=== PATIENT | male | born 2000 | race Caucasian/White ===

== ENCOUNTER 2022-06-15 14:26 | Emergency (ER) | payer OTHER, SELFPAY ==
--- NOTE | 2022-06-15 14:30 | ED.URI ---
HPI - URI/Sore Throat General Chief Complaint: Upper Respiratory Infection Stated Complaint: headache, congestion, sore throat,cough Time Seen by Provider: 06/15/22 14:31 Source: patient and RN notes reviewed History of Present Illness HPI Narrative: Patient is a 21-year-old male who presents to the Urgent Care with complaints of headache, congestion, sore throat, cough. Patient states that it started last Wednesday and he has been using Sudafed intermittently and Tylenol and ibuprofen. Denies any ill contacts. Denies any fevers, nausea or vomiting. No other acute complaints. No acute distress noted. Patient aware of the plan of care. Some parts of this dictation were generated by voice recognition software and may contain typographical and/or grammatical inaccuracies. Related Data Home Medications Medication Instructions Recorded Confirmed bupropion HCl 150 mg tablet,12 hr 150 mg PO DAILY 06/15/22 06/15/22 sustained-release Allergies Allergy/AdvReac Type Severity Reaction Status Date / Time No Known Allergies Allergy Verified 06/15/22 14:37 Review of Systems Review of Systems: CONSTITUTIONAL: Denies fever, chills, or sweats. EYES: Denies visual changes, redness, or discharge. ENT: Reports of congestion, sore throat CARDIOVASCULAR: Denies chest pain, palpitations, or edema. RESPIRATORY: Reports cough without dyspnea GASTROINTESTINAL: Denies abdominal pain, nausea, vomiting, or diarrhea. GENITOURINARY: Denies dysuria or hematuria. SKIN: Denies rash or itching. MUSCULOSKELETAL: Denies back pain, joint pain, or myalgia. NEUROLOGIC: Reports of headache All other systems reviewed are negative, except as documented in HPI. PMFSH Comments At the time of my signature, I reviewed and agree with the nursing past medical, surgical, social, and family history. There is no relevant family history pertinent to the patient complaint. Exam Narrative: GENERAL: This is a well-nourished, well-developed patient, in no apparent distress. HEAD: normocephalic, atraumatic. EYES: PERRL. Sclera clear/white. Vision is grossly intact. EARS: External ears normal, auditory canals clear and without drainage, bilateral eustachian tube dysfunction. TMs normal without perforation. Hearing grossly intact. NOSE: External nose normal with no obvious nasal discharge, nares without redness, clear yellow rhinorrhea. THROAT: Mucous membranes moist, posterior pharynx clear. Moderate postnasal drainage NECK: Neck supple, non-tender without lymphadenopathy CARDIOVASCULAR: Regular rate and rhythm without murmurs, gallops, or rubs. RESPIRATORY: Clear to auscultation. Breath sounds equal bilaterally. No wheezes, rales, or rhonchi. SKIN: warm, intact with no suspicious lesions or rash, good texture and turgor. NEURO: awake, alert, and oriented to person, place and time. There were no obvious focal neurologic abnormalities. EXTREMITIES: No clubbing, cyanosis, or edema. Course Course Level of Care: Express Care Visit Vital Signs Vital signs: Vital Signs Temperature 98.8 F 06/15/22 14:37 Pulse Rate 88 06/15/22 14:37 Respiratory Rate 20 06/15/22 14:37 Blood Pressure 139/61 06/15/22 14:37 Pulse Oximetry 97 06/15/22 14:37 Temperature 98.8 F 06/15/22 14:38 Pulse Rate 88 06/15/22 14:38 Respiratory Rate 20 06/15/22 14:38 Blood Pressure 139/61 06/15/22 14:38 Pulse Oximetry 97 06/15/22 14:38 Reviewed MDM - URI/Sore Throat MDM Narrative Medical decision making narrative: Advised patient to complete the steroid regimen as prescribed. Use the Flonase as needed for postnasal drainage. Use the Tessalon as needed for nonproductive cough. Would recommend a daily antihistamine such as Claritin or Zyrtec and use 25 mg capsule of Benadryl prior to bedtime. Use a humidifier at night. Use Tylenol/ibuprofen/Excedrin migraine as needed for headaches. Increase water intake and rest. Follow-up with your PCP within 2-5 day
[2022-06-15 14:37] VITALS: BP 139/61; PULSE 88; RESP 20; TEMP 37.1; O2SAT 97
[2022-06-15 14:38] VITALS: BP 139/61; PULSE 88; RESP 20; TEMP 37.1; O2SAT 97
== END 2022-06-15 14:59 | disposition home or self-care (01) ==
PROVIDERS: Emergency Provider Nurse Practitioner Family
DX: J32.9 Chronic sinusitis, unspecified (principal)
CPT/HCPCS: 99203; G0463

== ENCOUNTER 2023-11-27 18:44 | Emergency (ER) | payer OTHER, SELFPAY | END 2023-11-27 19:31 | disposition home or self-care (01) | LOC: EXPGOSH 19:30 | PROVIDERS: Emergency Provider Nurse Practitioner | DX: L02.415 Cutaneous abscess of right lower limb (principal) | CPT/HCPCS: 99213; G0463 ==

== ENCOUNTER 2025-02-15 09:05 | Outpatient (CLI) | payer OTHER, SELFPAY ==
--- OUTSIDE RECORDS SUMMARY | 2025-02-15 09:12 | XMS_ITS | Data Portability ---
Author Organization [place] [facility], Main Office Address [address] [place] [id number] Care Team Providers Care Nursing Education Consultant Name Role Phone NELI DYER Primary Care Provider [phone] Assessment Encounter Date Assessment Date Assessment LastModified by Organization Details LastModified Time 02/06/2025 02/06/2025 Time spent with patient included: preparing to see patient by reviewing tests, obtaining and reviewing history, medical examination and evaluation, counseling and educating the patient, ordering medications and tests, documenting clinical information in EHR, independently interpreting results and communicating results to the patient for a total of 38 minutes. [email or web address] Not available 02/07/2025 09:15:54 Plan of Treatment Reminders Order Date Submit Date Provider Last Modified By Organization Details Last Modified Time Details Appointments None recorded. Lab CMP, serum or plasma 2024 025 [email or web address], [address], [place], [address], 08:16:09 lipid panel, serum 2024 025 [email or web address], [address], [place], [address], 5 08:16:09 HbA1c (hemoglob in A1c), blood 2024 025 [email or web address], [address], [place], [address], 5 08:16:09 CBC w/ auto diff 2024 025 [email or web address], [address], [place], [address], 08:16:08 TSH, ultra-sen sitive, serum 2024 025 [facility], [address], [place], [address], 5 08:16:09 Referral sleep medicine referral - Please call patient to schedule an appointme nt. Thank you. 2024 025 [email or web address] Horacio Womack MD, [address] [place], [address], 15:40:13 Procedures None recorded. Surgeries None recorded. Imaging home sleep study - Please call patient to schedule. 2024 025 [facility] ([facility]), [address] [facility], [place], [address], 11:10:05 Medication Orders None recorded. Patient TargetsNo targets recorded. Patient InstructionsNo instructions recorded. Reason for Referral Sleep Medicine Referral for Daytime somnolence Please call patient to schedule an appointment. Thank you. Referring Physician: Neli Dyer, Family Medicine, Encounter Date: 01/10/2025 Results Created Date Observation Date Name Description Value Unit Range Abnormal Flag Note LastModifiedBy Organization Detail LastModifiedTime 09/19/1909/19/2024 CBC w/ auto diff CBC Not Available Not Availa ble 09/21/2024 09:47:05 Result Notes None recorded. Problems Name Problem SNOMED Code Status Onset Date Resolution Date Notes Provider Name and Address Organization Details Recorded Time Mixed anxiety and depressive disorder 790002031 Active 2024 MARIE Loera [address] [facility], [address], [place], [address], [facility] 5 09:19:57 Daytime somnolence 556312454156 Active 2024 MARIE Loera [address] [facility], [address], [place], [address], [facility] 5 16:10:49 Sleep apnea 64756618 Active 2024 Lena Diaz NP [address] [facility], [place], [address], [facility] 5 11:02:28 Problem Notes None recorded. Procedures Surgical History Date Name Laterality Status Provider Name and Address Organization Details Recorded Time 2 Appendectomy completed Muna Méndez RN [facility] [employer] [facility] 09/19/2024 09:09:02 Imaging Results None recorded. Procedure Notes None recorded. Medical Equipment None Reported. Allergies No known drug allergies Medications Name Sig Start Date Stop Date Status Note LastModified by Organization Details LastModified Time bupropion HCl SR 150 mg tablet,12 hr sustained-r elease TAKE 1 TABLET BY MOUTH EVERY DAY DIRECTED active Not Available Not Available No t Available sulfamethox azole 800 mg-trimetho prim 160 mg tablet TAKE 1 TABLET BY MOUTH TWICE DAILY 09/19 completed Not Available Not Available Not Available fluticasone propionate 50 mcg/actuati on nasal spray,suspe nsion USE 1 TO 2 SPRAYS IN EACH NOSTRIL EVERY DAY 09/19 completed Not Available Not Available Not Available Sudafed 30 mg tablet Take 2 tablets every 4-6 hours by oral route. active Not Available Not Available No t Available Zyrtec 10 mg capsule Take 1 capsule every day by oral route. active Not Available Not Available No t Available Vitals Date Recorded Body weight Body mass index (BMI) Body height Body temperature Heart rate Respiratory rate Oxygen saturation Oxygen saturation in Arterial blood by Pulse oximetry Pain severity - 0-10 verbal numeric rating [Score] - Reported Systolic And Diastolic Provider Name and Address Organization Details Last Updated DateTime 5 98067.0 9 g 25.9 kg/m2 183.52 cm 98.1 [degF] 93 /min 20 /min 98 % 98 % 0 114/68 mm[Hg] Muna Méndez RN [facility] [employer] 09:11:34 Date Recorded Body height Body mass index (BMI) Body weight Body temperature Heart rate Respiratory rate Oxygen saturation Oxygen saturation in Arterial blood by Pulse oximetry Pain severity - 0-10 verbal numeric rating [Score] - Reported Systolic And Diastolic Provider Name and Address Organization Details Last Updated DateTime 5 183.52 cm 25.1 kg/m2 32365.1 8 g 97 [degF] 98 /min 20 /min 97 % 97 % 0 130/80 mm[Hg] Muna Méndez RN [facility] 5 16:04:29 Date Recorded Body height Body mass index (BMI) Body weight Body temperature Heart rate Oxygen saturation Oxygen saturation in Arterial blood by Pulse oximetry Systolic And Diastolic Provider Name and Address Organization Details Last Updated DateTime 5 183.52 cm 25.1 kg/m2 31666.6 2 g 97.4 [degF] 94 /min 98 % 98 % 122/70 mm[Hg] Kenya Dalal RN [facility] 5 10:41:28 Social History Question Answer Notes LastModified by Organizat ion Details LastModified Time Tobacco Smoking Status Never Smoker Muna Méndez RN [facility], [facility] [employer] [facility] 09/19/2024 09:12:14 Do You Have An Advance Directive? No Information n ot available 09/19/2024 What Is Your Level Of Caffeine Consumption? Occasional Information not available 09/19/2024 In The 14 Days Before Symptom Onset, Have You Had Close Contact With A Laboratory-confirm ed COVID-19 While That Case Was Ill? No Information n ot available 09/19/2024 In The 14 Days Before Symptom Onset, Have You Had Close Contact With A Person Who Is Under Investigation For COVID-19 While That Person Was Ill? No Information not available 09/19/2024 What Type Of Diet Are You Following? REGULAR Information n ot available 09/19/2024 Have There Been Any Changes To Your Family Or Social Situation? No Information no t available 09/19/2024 Are There Any Guns Present In Your Home? No Information not available 09/19/2024 Do You Use Insect Repellent Routinely? No Information not available 09/19/2024 Where Do You Live? Apartment Inform ation not available 09/19/2024 Do You Have A Medical Power Of Manager Sales Training? No Information not available 09/19/2024 How Many Children Do You Have? 0 Information not available 09/19/2024 Do You Have Any Pets? Yes Information not available 09/19/2024 What Is Your Relationship Status? Single Information not available 09/19/2024 Do You Use Your Seat Belt Or Car Seat Routinely? Yes Information not available 09/19/2024 Do You Have Smoke And Carbon Monoxide Detectors In Your Home? Yes Information not available 09/19/2024 Are You Passively Exposed To Smoke? No Information no t available 09/19/2024 Are There Any Smokers In Your House? No Information not available 09/19/2024 Do You Participate In Social Media? Yes Information not available 09/19/2024 Do You Use Sunscreen Routinely? No Information not available 09/19/2024 Have You Recently Traveled Abroad? No Information not available 09/19/2024 Sex: Unknown Functional Status Question Answer Note LastModified by Organizat ion Details LastModified Time What is your level of alcohol consumption? None Information not available 09/19/2024 Are you currently employed? 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 Occasional Information not available 09/19/2024 Mental Status Question Answer Note LastModified by Organization D etails LastModified Time Do you feel stressed (tense, restless, nervous, or anxious, or unable to sleep at night)? [id number] Information not available 09/19/2024 Family History Relationship Description Onset Age of this Age Resolved Age Notes LastModified by Organization Details LastModified Time Father No current problems or disability Not available 09/19 09:08:31 Mother No current problems or disability Not available 09/19 09:08:31 Medical History Condition Response DEPRESSION (INCLUDING POST ) Y ANXIETY DISORDER Y Past Encounters Encounter ID Performer Location Encounter Start Date Encounter Closed Date Diagnosis/Indication Diagnosis SNOMED-CT Code Diagnosis ICD10 Code Diagnosis Note [id number] Jabier De Jesus MD [address] [address] 09/19/2024 08:58:28 09/19/2024 09:28:23 Adult health examination 302642949 Z00.00 Patient is overall healthyDis cussed diet/exerc isePatient questions answeredHe alth maintenanc e reviewed Mixed anxi ety and depressive disorder 608727780 F41.8 Well managed with Buproprion 150 mg, has been taking this for many years Hyperlipid emia screening 491705145 Z13.220 Diabetes m ellitus screening 293997471 Z13.1 [id number] Jabier De Jesus MD [address] [address] 01/10/2025 15:52:36 01/10/2025 16:17:24 Daytime somnolence 9071236394 00 R40.0 Cowen Sleepiness score of 11Would like a sleep studyHe has concerns with sleep apnea/narc olepsy [id number] Lena Diaz NP [facility] Pulmonolo gy Roy [address] [place] [address] 02/06/2025 10:32:01 02/07/2025 09:16:19 Sleep apnea 53086286 G47.30 G47.33 G47.10 Sleep study order todayESS-1 3Discussed sleep hygeineAdv ised good sleep habits and patterns:- Set a goal for at least 7 to 8 hours of sleep time per day-Use the bed mainly for sleep and to go to bed only when tired. If unable to fall asleep after 30 minutes, patient should get out of bed but should not engage in any activity that requires sustained mental alertness. -Maintain a bedtime and wake-up time even on weekends or day off of work.-Avoi d excessive naps during the daytime. If a nap is necessary, limit to no more than 30 minutes.-M inimize enviroment al noise, bright lights, and extremitie s in bedroom temperatur es.-Avoid alcohol, caffeinate d beverages, and nicotine products for at least 6 hours prior to bedtime.-A void strenuous exercise and large meals for at least 4 hours prior to bedtime.-D iscussed reportable signs and symptoms of concern Health Concerns Section Related Observation LastModified by Organization Detai ls LastModified Time None Recorded Concern Status LastModified by Organization Details LastModified Time None Recorded Advance Directives Directive N: Payers Insurance Date Sequence Insurance Name Policy Number Policy Pierce Covered Member ID Pierce Member ID Guarantor Name 02/07/2025 1 [facility] [id number] Marcelino Silveira [id number] Marcelino Silveira Notes Date Note Type Note Provider Name and Address Organization Details Recorded Time 09/19/2024 text/html Marcelino Silveira is a 24 year old male patient here today to establish care. Recently moved to this area. History of anxiety and depression. Is managing with buproprion XL 150mg. History of seasonal allergies Flu shot: 06/18COVID vaccines: x2Tdap: 06/18Colonoscopy not indicatedPSA not indicated MARIE Loera [address], [place], [address], [employer] 09/19/2024 09:26:12 01/10/2025 text/html Marcelino Silveira is a 24 year old male patient here today for sleep concerns. He notes that he is excessively tired. He states he has difficulty with driving and often feels he could fall asleep.He feels he has poor quality sleep. MARIE Loera [address], [place], [address], [employer] 01/10/2025 16:16:23 02/06/2025 text/html Obstructive Slee p ApneaReported bypatient.Associated Symptoms:no awakening short of breath; no night sweats; no napping; no impaired work performance; no gasping for air; no witnessed apnea; no hyponasal speech; normal concentration; no amnesia;morning dry mouth;morning headache;postnasal drip;dysphagia;daytime sleepiness;suddenly falling asleep during the day;nasal congestion;loud snoring;mouth breathing;hyperactivit y;irritabilitySleep ProblemsReported bypatient.Hand Dominance:right General Sleep:normal sleep; no sleep apnea; not sleepy during the day (daytime somnolence); no snoring; no radio/tv technician headache Onset/Timing:gradual onset Severity:does not interfere with daily activities; no drowsiness while driving; drowsiness not affecting work; moderate;limits daily activities;interferenc e with work;difficulty getting going in the morning Quality:no loud snoring; no gasping for air; no hyponasal speech;frequent breathing through the mouth Location of sleep apnea:no enlarged tonsils; no throat pain; no feeling of tightness in throat; no chest congestion;nasal passage blockage right;dryness of mouth Narcolepsy Symptoms:no cataplexy Prescribed sleep medications:not taking medication to help sleep Associated Symptoms:no sleep problems; no hypertension; no history of stroke; no heart disease; no automobile accidents as a result of sleepiness; no increased motor activity at night; does not act out dreams; no history of sleep disorder; no family history of sleep disorder; no restless leg symptoms; good sleep hygiene; epworth sleepiness scale total score (13) Lena Diaz NP [address] [facility], [address], [address], [facility] 02/07/2025 09:16:18
--- NOTE | 2025-03-07 17:04 | WPDHOMESLEEP ---
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 The patient admits to excessive daytime sleepiness, trouble falling asleep, and trouble maintaining sleep. He denies snoring loudly. He denies interruptions in breathing while asleep. He denies choking or gasping at night. He denies having trouble breathing on his back. He does have morning headaches. He does have a dry or sore mouth/throat in the morning. He denies nocturnal heartburn. He denies nocturia. He does have difficulty falling and staying asleep. He denies having difficulty returning to sleep if he wakes up throughout the night. He denies any hypnotic or sedative use. He does feel anxious about sleep. He does feel tired or sleepy during the day. He does feel tired in the morning. He does have the urge to fall asleep during the day. He does feel drowsy while driving. He denies sleep paralysis, cataplexy, and hypnagogic/hypnopompic hallucinations. He denies clenching or grinding his teeth. He denies kicking or jerking his legs excessively. He denies having a restless feeling in his legs. He goes to bed at 11:45 p.m. on workdays and at 1:30 a.m. on his days off. It takes him 30 minutes to fall asleep. He gets 6 hours and 45 minutes of sleep on his workdays and 8 hours on his days off. His sleep is a little more restorative on days off. He denies taking any planned naps. He denies dream enactment behavior. He denies sleepwalking. He consumes 1 to 2 cups of a caffeinated beverage per day. He denies tobacco and alcohol use. He exercises 5 to 7 nights per week. Medications Home Medications ?Medication ?Instructions ?Recorded ?Confirmed ?Type benzonatate 100 mg capsule 100 mg PO TID PRN cough #20 caps 06/15/22 Rx bupropion HCl 150 mg tablet,12 hr 150 mg PO DAILY 06/15/22 06/15/22 History sustained-release fluticasone propionate 50 2 spray intranasal DAILY #15.8 mL 06/15/22 Rx mcg/actuation nasal spray,suspension (Flonase Allergy Relief) methylprednisolone 4 mg tablets in See Rx Instructions PO .COMPLEX 06/15/22 Rx a dose pack (Medrol (Jeronimo)) #21 ea Sleep Procedure The sleep study was completed using [employer] a technically adequate device with seven channels: peripheral arterial tone, actigraphy, body position, snore, respiratory movement, pulse oximetry, sleep staging, and heart rate. Prior to using the device, the patient received verbal and written instructions for its application and was provided with the help desk phone number for additional telephonic instruction with 24-hour availability of qualified personnel to answer questions. The study was scored using CMS guidelines. Sleep Architecture The total recording time is 7 hrs, 6 min. The total sleep time is 6 hrs, 34 min. Sleep latency is 17 minutes. REM latency is 63 minutes. The patient had 4 episodes of waking. Sleep architecture shows 28.3% deep sleep, 37.4% light sleep, and (as % Total Sleep Time) showed NREM (Light 37.4%; Deep 28.3%), and a 34.3% stage REM. The patient spent 74.9% of total sleep time in the supine position. Sleep efficiency was 92.49. Respiratory Analysis The overall AHI (pAHI 4%:) is 1.4. The overall AHI (pAHI 3%:) is 4.6. The central AHI is 0.2. The AHI was 0.9 in NREM and 11.5 in REM sleep. The AHI was 3.9 in Supine and 6.7 in Non-supine sleep. Percent of Brijesh Fall respirations is 0.0. Oximetry Data The oxygen desaturation index (FIONA 4%:) is 1.4. The mean saturation is 95%, and the lowest saturation is 89%. Time spent with saturation < 88% is 0.0 minutes. Snoring Profile Snoring average intensity is 41 dB. The patient snored above 45 decibels for 3.7 minutes, 0.9% of sleep time. Cardiac Profile The average pulse rate is 67 beats per minutes. The lowest pulse rate is 49 bpm. The highest pulse rate reported is 107 bpm. Atrial fibrillation was not detected. Premature beats occur <0.1 per minute. Assessment and Plan Assessment and Plan (1) Daytime hypersomnia: Code(s): G47.10 - Hypersomnia, unspecified Status: Acute Assessment and Plan: The patient had an overall AHI of 1.4 with desaturation down to 89%. This is not consistent with sleep-disordered breathing. If there is further concern for a sleep disorder, I recommend that the patient have a split study with the use of a hypnotic to ensure we obtain enough sleep data. Data The data obtained during this sleep study is adequate for interpretation. Certification This sleep study has been reviewed by a board certified sleep medicine physician.
[2025-03-07 17:36] VITALS: BMI 24.3
== END 2025-02-16 10:06 | disposition home or self-care (01) ==
LOC: ANHCSM 09:09
PROVIDERS: Visit Provider Nurse Practitioner
DX: G47.30 Sleep apnea, unspecified (principal); G47.10 Hypersomnia, unspecified
CPT/HCPCS: 95800